=== PATIENT | male | born 1980 ===

== ENCOUNTER 2016-08-03 15:16 | Emergency (ER) | payer OTHER ==
[~2016-08-03] VITALS: Ht 180.3 cm; Wt 90.9 kg
[~2016-08-03 15:16] MED LIST: HYDR25TA4 PO; LISI10TA PO
[2016-08-03 15:18] VITALS: BP 137/90; PULSE 79; RESP 15; O2SAT 98
--- NOTE | 2016-08-03 15:55 | ED.REPORT ---
HPI-Chest Pain Under 40 Date of Service August 03, 2016 ED Provider: Timoteo Strauss MD The patient is a 36 year old male with history of hypertension, who presents to the emergency department complaining of left-sided chest pain that began at 0700 this morning. He describes the pain as intermittently sharp. His pain radiates into his left arm. His pain has been waxing and waning since onset. The "flare-up" episodes last about 5-20 minutes. Positions seem to make a difference. His pain is worse with deep breaths. He has also experienced lightheadedness. He was seen at the [facility] this morning and was given a nitroglycerin and aspirin, with no relief. He then was sent to [facility] where he had a workup completed. He was not happy with his care there and subsequently came here. He has not had similar symptoms in the past. He denies fever, chills, cough, shortness of breath, nausea or vomiting. He does not have history of cardiac disease. He does not smoke tobacco. The patient also mentions that he has been under a lot of stress recently. Nursing Notes Stated Complaint: PAIN TO LEFT ARM, LEFT SIDE CHEST PAIN Chief Complaint: Chest Pain Nursing Notes Reviewed: Yes Allergies: Coded Allergies: paprika (Unverified Allergy, Severe, facial swelling, 05/07/15) Scheduled Hydrochlorothiazide (Hydrochlorothiazide) 25 Mg Tablet 25 MG PO DAILY Lisinopril (Lisinopril) 10 Mg Tablet 10 MG PO DAILY PLEASE VERIFY DOSAGE General Time Seen by MD: 15:54 Chief Complaint Chest pain Hx Obtained From: Patient, Other family... (Mother) Arrived By: Walk-in Sudden in Onset?: Yes Onset Occurred: 5 - 8 hours ago Symptom Duration: Waxes and wanes Location: : Chest left Quality: Painful, Sharp Radiation: : Arm left Severity: Current: Severe Severity: Maximum: Severe Recent Healthcare: No recent hospitalization, Recent doctor visit Similar Sx Previous: No Risk Factors PERC Rule PERC Result: All PERC criteria "No", PERC rule satisfied Well's Criteria for PE Well's PE Score: 0-2 pts (low risk 3.6%) Past Medical History Past Medical History Osteoarthritis Reports: Hypertension Past Surgical History Rotator cuff repair Appendectomy Family History Reports: Diabetes mellitus, Stroke, Denies: Coronary artery disease Smoking History Never Smoker Social History Alcohol Use: "Social" Drug Use: Denies drug use Other Social History: Good social support, Lives with children, Local resident Ambulatory Status Independent Review of Systems Constitutional: Denies: Chills, Fever Respiratory: Reports: Pleuritic pain, Denies: Non-productive cough, Shortness of breath Cardiovascular: Reports: Chest pain GI: Denies: Nausea, Vomiting Musculoskeletal: Reports: Extremity pain Neurologic: Reports: Lightheaded Psychiatric: Reports: Stress Complete sys rev & neg: except as marked. Physical Exam Initial Vital Signs Vital Signs (First) Date Time Temp Pulse Resp B/P Pulse Ox O2 Delivery O2 Flow Rate FiO2 08/03/16 15:18 36.7 79 15 137/90 98 Room Air Initial VS: Reviewed Head / Eyes: Atraumatic, Normocephalic, PERRL ENT: Mucous membranes moist, Conjunctiva normal, No scleral icterus Neck: Supple, Non-tender, Full range of motion Abdomen / GI: Soft, Non-tender, No guarding, No rebound, No distention Lymphatic: No lymphadenopathy Extremities: Vascular intact, No swelling Skin: Warm, Dry, No cyanosis Psychiatric: Mood/affect normal, Behavior normal, Normal thought content General/Constitutional: Awake, Alert, Well appearing, Cooperative Respiratory / Chest: Breath sounds NL, Breath sounds = bilat, No respiratory distress, No rales, No rhonchi, No wheezing He is distinctly tender with palpation on the left chest that is worse with deep breathing. He is wincing in pain even with the weight of my stethoscope. Cardiovascular: Heart rate NL, Regular rhythm, Heart sounds NL, No gallop, No murmurs, No rubs, Peripheral circulation NL, Pulses = bilaterally, No gross BP differential Neurologic: Oriented X3, Speech NL, No motor deficits Hyperesthesia to his left arm. 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 Upper Extremity / MS: Vascular intact Left shoulder pain with shoulder movement. Interpretation & Diagnostics Interpretation & Diagnostics: Labs completed at 10:10 AM at [place]: CBC and CMP are completely normal, troponin 0.05, d-dimer negative, drug scree negative. Chest x-ray was also negative. Lab Results Interpretation Test 08/03/16 16:47 Troponin T < 0.010ug/L (0.0-0.011) ECG Interpretation ECG Interpretation: Sinus rhythm with a rate of 59 Time: 15:28 Interpreted by: ED physician Re-Eval/Medical Decision Source of Hx: Old records, Family Re-Evaluation/Progress : Time of Eval: 17:46 Re-Evaluation/Progress Note: Rechecked the patient. Discussed results, diagnosis, and plan for discharge. All questions were addressed. Counseled Regarding: Diagnosis, Lab results, Need for admission Discharge & Departure Primary Impression: Non-cardiac chest pain Disposition: Home Discharge Condition All VS Reviewed: Yes Condition: Stable Patient Instructions: Chest Pain (ED) Additional Instructions: Thank you for entrusting us with your care today. Your workup at [facility] today included blood work and a chest x- ray. Your results there were reassuring. We did a repeat troponin here that was also negative. Your pain is consistent with musculoskeletal pain. Use ibuprofen as needed for your pain. You can also use cyclobenzaprine as needed for muscle spasms. Seek care for increased pain, shortness of breath, or any other new or concerning symptoms. Follow-up at the clinic in 2 or 3 days. Referrals: NOPCP (PCP) Scribe Attestation Portions of this note were transcribed by Lo Phillip. I, Dr. Strauss personally performed the history, physical exam and medical decision-making; I reviewed and confirmed the accuracy of the information in the transcribed note. Signed by: Maritza Mcqueen, 08/03/2016 at 1815. Timoteo Strauss MD August 03, 2016 15:55 Lo Phillip August 03, 2016 16:03
[2016-08-03] MEDS ORDERED: HYDROcodone-APAP 5-325 mg Tablet PO ONE (16:30)
[2016-08-03 16:42] VITALS: BP 114/55; PULSE 74; RESP 18; O2SAT 98
[2016-08-03 17:31] VITALS: BP 111/70; PULSE 76; RESP 16; O2SAT 97
[2016-08-03] MEDS ORDERED: CYCL10TA9 PO (18:12)
[2016-08-03 18:19] VITALS: BP 111/69; PULSE 72; RESP 20; O2SAT 95
== END 2016-08-03 18:19 | disposition home or self-care (01) ==
LOC: SED 15:16
DX: R07.89 Other chest pain (principal); R42 Dizziness and giddiness; I10 Essential (primary) hypertension; Z91.02 Food additives allergy status